=== PATIENT | female | born 1995 | race Caucasian/White ===

== ENCOUNTER 2017-03-31 16:57 | Emergency (ER) | payer MEDICAID ==
[2017-03-31] MEDS ORDERED: ONDANSETRON 4 MG TAB.RAPDIS PO ONE (17:50)
[2017-03-31] MEDS ORDERED: KETOROLAC TROMETHAMINE 60 MG/2 ML VIAL IM ONE ×2 (17:52→17:59)
--- NOTE | 2017-03-31 17:58 | ERNOTE ---
Abdominal HPI - Narrative Date of Service: 03/31/17 - General Chief Complaint: Abdominal Pain Time Seen by Provider: 03/31/17 17:43 Source: patient Exam Limitations: no limitations - Immun/Allergies/Home Medications Immunizatons: IMMUNIZATION HX Immunizations Up to Date No History of Influenza Vaccine No Hx Pneumococcal Vaccination No Allergies/Adverse Reactions: Allergies No Known Allergies Allergy (Unverified 02/21/16 23:05) Home Medications: HOME MEDICATIONS Penicillin V Potassium [Pen-Vee K] 500 mg PO QID #40 tab 02/22/16 [Last Taken Unknown] Tamsulosin HCl [Flomax] 0.4 mg PO DAILY@1800 #10 cap 03/31/17 [Last Taken Unknown] - History of Present Illness Narrative: Pt. comes in with c/o RLQ pain with nausea that started last night and denies any change in symptoms since onset and denies any alleviating or aggravating factors, fever, SOB, CP, vomiting or diarrhea. Pt. states that LBM was this morning and it was normal for her. Pt. states that her LMP was three days ago. Review of Systems - Review of Systems Constitutional: Present: no symptoms reported. Absent: recent illness, fever, chills, fatigue, malaise, weight loss EYE: Present: no symptoms reported ENT: Present: no symptoms reported Respiratory: Present: no symptoms reported. Absent: shortness of breath, cough , wheezing Cardiology: Present: no symptoms reported. Absent: chest pain, palpitations, edema Gastrointestinal/Abdominal: Present: nausea, abdominal pain - RLQ. Absent: vomiting, diarrhea Genitourinary: Present: no symptoms reported. Absent: frequency, decreased urinary output Musculoskeletal: Present: back pain - R flank Neurological: Present: no symptoms reported. Absent: headache, dizziness/light- headedness, numbness, tingling All Other Systems: All systems neg except as marked - Patient's Past Medical History Patient History - Medical: Seizures Patient History - Cardiac/Respiratory: No pertinent hx Patient History - Cancer: No Hx of Cancer Patient History - Surgical Procedures: Other Patient History - Other: None - Social History Living Situations: home Abuse History: No History of abuse Psych History: No pertinent hx Smoking Status: Current every day smoker Have you smoked in the past 12 months: Yes Alcohol Use: occasionally Drug Use: marijuana - Immunizations Immunizations Up to Date: No Hx Pneumococcal Vaccination: No History of Influenza Vaccine: No Physical Exam - Physical Exam General Appearance: Present: wd/wn, alert, no apparent distress Eye Exam: Normal inspection: bilateral, PERRL: bilateral, EOMI: bilateral Ears, Nose, Throat: Present: normal ENT inspection, normal pharynx Neck: Present: normal inspection, nontender. Absent: lymphadenopathy (R), lymphadenopathy (L) Respiratory: Present: no respiratory distress, normal breath sounds, no accessory muscle use, chest nontender, lungs clear Cardiovascular/Chest: Present: regular rate, rhythm, no murmur, normal peripheral pulses Gastrointestinal/Abdominal: Present: normal bowel sounds, nondistended, soft, no organomegaly, tenderness - RLQ Back Exam: Present: normal range of motion, no vertebral tenderness, CVA tenderness (R) Extremity Exam: Present: normal inspection, non-tender, normal range of motion, no edema Neurological Exam: Present: alert, oriented, normal mood/affect, no motor/ sensory deficits Skin Exam: Present: normal color, warm/dry. Absent: pallor, skin rash ED Progress - Results and Orders Patient's Lab Results:: I have reviewed the patient's lab results. - Vital Signs Patient's Vital Signs:: I have reviewed the patient's vital signs. Vital Signs: Vital Signs 03/31/17 17:36 Temperature 37.0 C Pulse Rate 81 Respiratory 18 Rate Blood Pressure 115/65 O2 Sat by Pulse 100 Oximetry - X-Ray X-Ray #1 X-Ray: abdomen Interpretation: Reviewed by me X-ray Comments: nonobstructive bowel gas pattern - CT/Ultrasound CT/Ultrasound Narrative: CT without evidence of appendicitis but with 2.6 mm stone noted distal UVJ. - Progress/Reassessment Chief Complaint: Abdominal Pain Departure - Departure Clinical Impression: Kidney stone Disposition: Home self-care Condition: Good Instructions: Kidney Stones, [id number] Additional Instructions: Please strain all urine and follow up with urology in 3-5 days if symptoms worsen or do not improve. Prescriptions: Tamsulosin HCl [Flomax] 0.4 mg PO DAILY@1800 #10 cap
[2017-03-31] MEDS ORDERED: ONDANSETRON 4 MG TAB.RAPDIS ONE (17:59)
--- OUTSIDE RECORDS SUMMARY | 2017-03-31 18:04 | XMS REPORT | Continuity of Care Document ---
:1995 Author Organization [facility] ([facility]) Address [place] [place] [address] Phone [phone] Care Team Providers Name Role Phone Provider, No-Primary Care Primary Care Provider Unavailable Source Comments This disclosure is being made pursuant to the Care Everywhere program, applicable federal and state laws, and may not contain all informaitonavailable regarding this patient.[facility] ([facility]) Active Allergies and Adverse Reactions Allergen Noted Date Severity Reactions Comments Mint 11/21/2014 Headache,Anaphylaxis Current Medications Prescription Sig. Disp. Refills Start Date End Date Status multivitamin Take 1 Tab by mouth Active with minerals 27-0.8 daily. mg tablet HYDROcodone-acetamino Take 1 Tab by mouth 20 Tab 0 11/21/2014 Active phen 5-325 mg per every 4 hours as tablet needed for Pain. DO NOT EXCEED 3,000 MG ACETAMINOPHEN PER DAY FROM ALL SOURCES Indications: PAIN ibuprofen 800 mg Take 1 Tab by mouth 20 Tab 0 11/21/2014 Active tablet every 6 hours as needed for Pain. DO NOT EXCEED 3,200 MG IBUPROFEN PER DAY FROM ALL SOURCES Indications: PAIN Active Problems Problem Noted Date Migraine 03/05/2011 Social History Tobacco Use Types Packs/Day Years Used Date Current Every Day Smoker 0.5 Tobacco Cessation:Ready to Quit: Yes; Counseling Given: Yes Comments: Alcohol Use Drinks/Week oz/Week Comments No Last Filed Vital Signs Vital Sign Reading Time Taken Blood Pressure 126/69 11/21/2014 1:57 PM M60A2 [employer] Pulse 100 11/21/2014 12:39 PM M60A2 [employer] Temperature 36.1 C (97 F) 11/21/2014 12:39 PM M60A2 [employer] Respiratory Rate 20 11/21/2014 12:39 PM M60A2 [employer] Height 1.575 m (5' 2") 11/21/2014 12:36 PM M60A2 [employer] Weight 68.947 kg (152 lb) 11/21/2014 12:36 PM M60A2 [employer] Body Mass Index 27.79 11/21/2014 12:36 PM M60A2 [employer] Oxygen Saturation 100% 11/21/2014 1:57 PM M60A2 [employer] Plan of Care Health Maintenance Due Date Last Done Comments Hepatitis B Vaccine (1 of 3 - Primary Series) 1993 HPV Vaccine (1 of 3 - Female/Unknown 3 Dose Series) 2004 Tdap Vaccine 2004 Cervical Cancer Screening 2011 Lipid Disorder Screening 2011 MMR Vaccine 2011 Td Vaccine 2011 Varicella Vaccine (1 of 2 - Adult - No Evidence of 2011 Immunity) Pneumococcal Vaccine (1 of 1 - PPSV23) 2012 Influenza Vaccine: Seasonal (#1) 06/10/2016 Results from Last 3 Months Not on file
[2017-03-31 18:11] LABS: Urine Bilirubin Negative (NEGATIVE); Urine Blood Negative /ul (NEGATIVE); Urine Ketone Negative (NEGATIVE); Urine Nitrite Negative (NEGATIVE); Urine Protein Negative (NEGATIVE); Urine Specific Gravity <=1.005 SP.GR. (1.005-1.010); Urine Urobilinogen Normal (NORMAL); Urine pH 6.5 pH (5.0-7.0)
[2017-03-31 18:27] LABS: Hemoglobin 16.1 gm/dL (12.5-16.0); Mean Cell Volume 90.4 fl (78-100); Mean Corpuscular Hgb Conc 34.3 g/dl (32-36); Mean Platelet Volume 10.6 fl (6.0-9.5); Platelet Count 251 K/mm3 (150-450); Red Cell Distribution Width 11.7 % (11.5-14.0); White Blood Count 4.5 K/mm3 (4.0-10.5)
[2017-03-31 18:29] LABS: Urine Appearance Clear; Urine Bacteria None Seen; Urine Color Colorless; Urine RBC None Seen /hpf (0-5); Urine WBC None Seen /hpf (0-5)
[2017-03-31 18:33] LABS: Total Cells Counted 100
[2017-03-31 18:40] LABS: Albumin * 4.4 gm/dl (3.4-5.0); BUN/Creatinine Ratio 9.9 (9.0-21.6); Bilirubin, Total 0.5 mg/dL (0.0-1.1); Ca. Corrected For Albumin 8.8 mg/dL (8.4-10.2); Calcium * 9.4 mg/dL (7.9-10.9); Carbon Dioxide 31.8 mmol/L (24-32.6); Potassium 3.8 mmol/L (3.4-4.6); Total Protein 7.9 gm/dL (6.2-8.2)
[2017-03-31 19:33] LABS: Eosinophil 2 % (0-3); Lymphocyte 28 % (20-51); Monocyte 4 % (0-9); Neutrophil 66 % (42-75)
[2017-03-31 19:35] LABS: Platelet Estimate Normal (NORMAL); Polychromasia Trace; RBC Morphology Normal (NORMAL)
[2017-03-31] MEDS ORDERED: DIATRIZOATE MEGLU/DIATRIZO SOD 30 ML BTL PO ONE (19:35)
[2017-03-31] MEDS ORDERED: DIATRIZOATE MEGLU/DIATRIZO SOD 30 ML BTL ONE (19:47)
[2017-03-31] MEDS ORDERED: KETOROLAC TROMETHAMINE 30 MG/ML VIAL ONE (22:07)
[2017-03-31] MEDS ORDERED: KETOROLAC TROMETHAMINE 30 MG/ML VIAL IV ONE (22:07)
[2017-03-31 22:40] VITALS: BP 117/68
== END 2017-03-31 22:30 | disposition home or self-care (01) ==
LOC: ER 16:57
DX: N20.0 Calculus of kidney (principal); Z72.0 Tobacco use